=== PATIENT | female | born 1985 | race Caucasian/White ===

== ENCOUNTER 2017-03-30 16:37 | Emergency (ER) | payer MEDICAID ==
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
--- NOTE | 2017-03-31 08:36 | Diagnostic Imaging Report ---
CT cervical spine without IV contrast HISTORY: Trauma COMPARISON: None Technique: Axial images were obtained from the skull base to the upper thoracic spine without IV contrast. Multiplanar reconstructions were made. Total DLP: 311, CTDI15 FINDINGS: There is straightening of the cervical lordosis. No evidence of an acute fracture or subluxation. No prevertebral soft tissue swelling. The visualized lung apices are clear. No focal soft tissue abnormalities. There is mild rightward convexity of the cervical spine which may be due to positioning versus scoliosis. IMPRESSION: No evidence of acute fracture or subluxation Straightening of the cervical lordosis which may be due to positioning or muscle spasm.
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
== END 2017-03-30 19:05 | disposition home or self-care (01) ==
LOC: ER 16:37
DX: S16.1XXA Strain of muscle, fascia and tendon at neck level, initial encounter (principal); S39.012A Strain of muscle, fascia and tendon of lower back, initial encounter; X58.XXXA Exposure to other specified factors, initial encounter; Y93.89 Activity, other specified; Y92.89 Other specified places as the place of occurrence of the external cause; Y99.8 Other external cause status
CPT/HCPCS: 99285; 96372; 72125; 72131; 36415; 84703; J1885

== ENCOUNTER 2018-01-25 05:48 | Emergency (ER) | payer MEDICAID ==
[2018-01-25] MEDS ORDERED: Bacitracin pkt 1 gm Pkt TP ONE (06:24)
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
[2018-01-25] MEDS ORDERED: Bacitracin pkt 1 gm Pkt TP STA (06:38)
== END 2018-01-25 06:50 | disposition home or self-care (01) ==
LOC: ER 05:48
DX: S81.811A Laceration without foreign body, right lower leg, initial encounter (principal); W25.XXXA Contact with sharp glass, initial encounter; Y93.89 Activity, other specified; Y92.89 Other specified places as the place of occurrence of the external cause; Y99.8 Other external cause status
CPT/HCPCS: 12002; A4217; Z7502; Z7610

== ENCOUNTER 2018-05-15 21:22 | Emergency (ER) | payer MEDICAID ==
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
--- NOTE | 2018-05-16 09:34 | Diagnostic Imaging Report ---
Head CT without intravenous contrast Indication: Trauma Comparison: None Technique: Axial images were obtained from the vertex to the skull base without IV contrast. Coronal reconstructions were made. Total DLP: 540, CTDI32 FINDINGS: Images of the brain obtained without contrast demonstrate no acute hemorrhage. No mass lesions identified. The ventricles and basal cisterns are patent. The kingsley-white matter differentiation is preserved. There is no mass effect or midline shift. No skull fractures identified. No soft tissue swelling. The paranasal sinuses are clear. IMPRESSION: No acute intracranial abnormality.
--- NOTE | 2018-05-16 09:41 | Diagnostic Imaging Report ---
CT cervical spine without IV contrast HISTORY: Trauma COMPARISON: None Technique: Axial images were obtained from the skull base to the upper thoracic spine without IV contrast. Multiplanar reconstructions were made. Total DLP: 402, CTDI19.4 FINDINGS: Images of the cervical spine obtained without contrast demonstrate no evidence of an acute fracture or subluxation. Minimal degenerative changes are seen with small to moderate posterior disc osteophyte complex at C7/T1. No prevertebral soft tissue swelling. There is reversal of the cervical lordosis. The lung apices are clear. IMPRESSION: No evidence of acute fracture or subluxation. Minimal degenerative changes. Reversal of the cervical lordosis which may be due to positioning versus muscle spasm.
--- NOTE | 2018-05-16 10:00 | Diagnostic Imaging Report ---
CT maxillofacial bones without IV contrast HISTORY: Trauma COMPARISON: Head CT the same day Technique: Axial images of the paranasal sinuses were obtained without IV contrast. Reconstructions were made. total DLP: 344, CTDI18.6 Findings: The bilateral orbital floors are intact. The globes and intraconal compartments are intact. Zygomatic arches are intact. No air-fluid levels in the paranasal sinuses. The bilateral TMJ joints are intact. Dental hardware is noted. There is soft tissue swelling along the right lateral maxillary region. IMPRESSION: Soft tissue swelling along the right lateral maxillary region. No evidence of an acute fracture.
== END 2018-05-16 | disposition home or self-care (01) ==
LOC: ER 21:22
DX: S06.9X9A Unspecified intracranial injury with loss of consciousness of unspecified duration, initial encounter (principal); S09.93XA Unspecified injury of face, initial encounter; R11.2 Nausea with vomiting, unspecified; R19.7 Diarrhea, unspecified; R10.12 Left upper quadrant pain; Z98.890 Other specified postprocedural states; Y04.0XXA Assault by unarmed brawl or fight, initial encounter; Y93.89 Activity, other specified; Y92.89 Other specified places as the place of occurrence of the external cause; Y99.8 Other external cause status
CPT/HCPCS: 99284; 96372; 70450; 70486; 72125; 81025; J1885; Z7502